=== PATIENT | female | born 1955 | race Caucasian/White ===

== ENCOUNTER 2023-10-21 13:28 | Emergency (ER) | payer OTHER, MEDICARE, MEDICAID, SELFPAY ==
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
[2023-10-21 14:05] VITALS: BP 136/74; BP 158/86; PULSE 65; RESP 18; TEMP 36.1; O2SAT 97; BMI 42.4
[2023-10-21] MEDS: Acetaminophen 325 MG TABLET 650 MG PO (14:18)
--- NOTE | 2023-10-21 14:20 | PC.NURSE ---
pt medicated per order
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
[2023-10-21 16:13] VITALS: BP 148/79; PULSE 64; RESP 18; TEMP 36.6; O2SAT 98
[2023-10-21] MEDS: Ondansetron ODT 4 MG TAB.RAPDIS TRANSLINGU (17:19)
[2023-10-21 17:29] VITALS: BP 148/79; PULSE 64; RESP 18; TEMP 36.6
== END 2023-10-21 17:40 | disposition home or self-care (01) ==
PROVIDERS: Emergency Provider Emergency Medicine
DX: S20.213A Contusion of bilateral front wall of thorax, initial encounter (principal); R11.0 Nausea; R07.81 Pleurodynia; R07.89 Other chest pain; M54.2 Cervicalgia; V43.62XA Car passenger injured in collision with other type car in traffic accident, initial encounter; Y93.9 Activity, unspecified; Y92.410 Unspecified street and highway as the place of occurrence of the external cause; Y99.8 Other external cause status
CPT/HCPCS: 71111; 94010; 99283; 99284

== ENCOUNTER 2024-06-09 10:00 | Outpatient (REF) | payer OTHER, MEDICARE, MEDICAID, SELFPAY ==
--- OUTSIDE RECORDS SUMMARY | 2024-06-09 13:10 | XMS_ITS | Clinical Summary ---
Author Organization [facility] Address [address] [place] [address] Care Team Providers Care Coil Machine Supervisor Name Role Phone Ayana Deleon APRN Primary Care Provider [phone] Allergies Active Allergy Reactions Criticality Noted Date Comments Amoxicillin 11/27/2013 Medications Medication Sig Dispensed Refills Start Date End Date Status valsartan (DIOVAN) 40 MG tablet 160 mg daily. 0 Active pantoprazole (PROTONIX) 40 MG tablet Take 1 tablet (40 mg total) by mouth daily. Pantoprazole Sodium 40 MG Oral Tablet Delayed Release Refills: 0 Active 30 tablet 0 12/01/2014 Active traMADol (ULTRAM) 50 MG tablet 0 09/27/2015 Active cyclobenzaprine (FLEXERIL) 10 MG tablet Take 1 tablet (10 mg total) by mouth 3 (three) times a day as needed for muscle spasms. 30 tablet 0 10/23/2015 Active lidocaine (LIDODERM) 5 % Place 1 patch onto the skin daily. Remove & Discard patch within 12 hours or as directed by MD 30 patch 0 10/23/2015 Active naproxen (NAPROSYN) 500 MG tablet Take 1 tablet (500 mg total) by mouth 2 (two) times a day with meals. 30 tablet 0 10/23/2015 Active HYDROcodone-acetam inophen (NORCO) 5-325 MG per tablet Take 1 tablet by mouth every 6 (six) hours as needed for pain. 6 tablet 0 10/23/2015 Active meclizine (ANTIVERT) 25 MG tablet Take 1 tablet (25 mg total) by mouth 3 (three) times a day as needed. 30 tablet 0 12/30/2015 Active sucralfate (CARAFATE) 1 GM/10ML suspension Take 10 mL (1 g total) by mouth 4 (four) times a day. 420 mL 0 01/23/2016 Active Active Problems Problem Noted Date Diagnosed Date Postoperative ileus 11/24/2014 Obesity, morbid, BMI 50 or higher 11/18/2014 Small bowel obstruction 11/17/2014 Hypertension associated with diabetes 11/17/2014 Hyperglycemia 11/17/2014 S/P exploratory laparotomy 11/17/2014 Ventral hernia with obstruction 11/17/2014 Hernia, incisional 11/16/2014 Cancer of body of uterus 11/16/2014 Resolved Problems Problem Noted Date Diagnosed Date Resolved Date Postoperative respiratory failure 11/18/2014 11/23/2014 Lactate blood increased 11/17/201410/28 Acute respiratory failure fo llowing trauma and surgery 11/17/2014 11/18/2014 Social History Tobacco Use Types Packs/Day Years Used Date Smoking Tobacco: Never Alcohol Use Standard Drinks/Week Comments No 0 (1 standard drink = 0.6 oz pur e alcohol) Sex and Gender Information Value Date Recorded Sex Assigned at Not on file Gender Identity Not on file Sexual Orientation Not on file Last Filed Vital Signs Vital Sign Reading Time Taken Comments Blood Pressure 139/77 09/19/2016 1:15 PM EDT Pulse 67 09/19/2016 1:15 PM EDT Temperature 36.7 ??C (98 ??F) 09/19/2016 1:15 PM EDT Respiratory Rate 16 09/19/2016 1:15 PM EDT Oxygen Saturation 96% 09/19/2016 1:15 PM EDT Inhaled Oxygen Concentration - - Weight 141.6 kg (312 lb 2.7 oz) 017 10:27 AM EDT Height 154.9 cm (5' 1 ) 09/19/2016 10:2 7 AM EDT Body Mass Index 58.98 09/19/2016 10:27 AM EDT Plan of Treatment Health Maintenance Due Date Last Done Comments Hepatitis C Screening 1954 Pneumococcal Vaccine (1 of 2 - PCV) 1960 Depression Screening 1966 Preventative Health Evaluation 1972 DTap / Tdap / Td (1 - Tdap) 1973 Shingrix-Zoster Vaccine (1 o f 2) 1973 Colon Cancer Screening (Colonoscopy) 1999 Breast Cancer Screening (Mammogram) 2004 Fall Risk Assessment 2019 Osteoporosis Screening (DEXA Scan) 2019 COVID-19 Vaccine (2 - Pfizer risk series) 10/17/2021 09/26/2021 Influenza Vaccine (#1) 2023 9, 02/22/2017 RSV Adult > 60+ Yrs or (1 - 1-dose 75+ series) 2029 Hepatitis B Vaccines Aged Out No long er eligible based on patient's age to complete this topic RSV Ped < 20 months Aged Out No longe r eligible based on patient's age to complete this topic Advance Directives For more information, please contact: [phone] Latest Code Status on File Code Status Date Activated Date Inactivated Comments Full Code 11/16/2014 10:41 PM 12/02/2014 5:55 PM This code status was ascertained in the following way: discussion with patient. Care Teams Coil Machine Supervisor Relationship Specialty Start Date End Date Ayana Deleon APRN PCP - General Family Medicine 11/27/13
--- OUTSIDE RECORDS SUMMARY | 2024-06-09 13:10 | XMS_ITS | Clinical Summary ---
Author Organization [facility] Address [address] [place] [address] Care Team Providers Care Filler Machine Operator Name Role Phone Ayana Deleon I CHARGER OPERATOR Primary Care Provider [phone] Immunizations Name Administration Dates Next Due Pfizer (ages 12 & older) PABLITO S-CoV-2 COVID-19, mRNA, LNP-S, rosa maria-sucrose, preservative free 09/26/2021 Social History Tobacco Use Types Packs/Day Years Used Date Smoking Tobacco: Never Smokeless Tobacco: Never Comments Unknown Sex and Gender Information Value Date Recorded Sex Assigned at Not on file Legal Sex Female 2:34 PM EST Gender Identity Not on file Sexual Orientation Not on file Obstetrics History Plan of Treatment Health Maintenance Due Date Last Done Comments Breast Cancer Screening 1954 DTaP,Tdap,and Td Vaccines (1 - Tdap) 1961 Diabetes: Annual Foot Exam 1964 Diabetes: Annual Retina Eye Exam 1964 Pneumococcal Vaccine: 50+ Ye ars (1 of 2 - PCV) 1973 Zoster Vaccines (1 of 2) 1973 Diabetes: Annual GFR (Glomer ular Filtration Rate) 09/19/2017 09/19/2016 COVID-19 Vaccine (2 - Pfizer risk series) 10/17/2021 09/26/2021 Cholesterol Screening (Lipid Panel) 03/28/2022 Colorectal Cancer Screening: Colonoscopy 03/28/2022 Depression Screening 03/28/2022 Falls Risk Assessment 03/28/2022 Hepatitis C Screening 03/28/2022 Osteoporosis Screening (Bone Density Screening) 03/28/2022 Social Influencers of Health Screening 03/28/2022 Diabetes: Annual Urine Albumin-Creatinine Ratio (uACR) 04/15/2022 Diabetes: Blood Sugar Contro l Test (HGBA1C) 04/15/2022 Hypertension/CHF/CAD Annual BMP Blood Test 04/15/2022 09/19/2016 Influenza Vaccine (#1) 2023 RSV Immunization Patients 60 + Years Old (1 - 1-dose 75+ series) 2029 HIB Vaccines Aged Out No longer eligi ble based on patient's age to complete this topic HPV Vaccines Aged Out No longer eligi ble based on patient's age to complete this topic Hepatitis A Vaccines Aged Out No long er eligible based on patient's age to complete this topic Hepatitis B Vaccines Aged Out No long er eligible based on patient's age to complete this topic IPV Vaccines Aged Out No longer eligi ble based on patient's age to complete this topic MMR Vaccines Aged Out No longer eligi ble based on patient's age to complete this topic Meningococcal ACWY Vaccine Aged Out N o longer eligible based on patient's age to complete this topic Meningococcal B Vacine Aged Out No lo nger eligible based on patient's age to complete this topic RSV Immunization Patients Un carmita 20 months Aged Out No longer eligible b ased on patient's age to complete this topic Varicella Vaccines Aged Out No longer eligible based on patient's age to complete this topic Care Teams Filler Machine Operator Relationship Specialty Start Date End Date Ayana Deleon NP PCP - General Family Medicine 11/27/13
[2024-06-09 18:38] LABS: Alanine Aminotransferase 11 U/L (0-31); Aspartate Amino Transferase 24 U/L (5-31); Estimated Glomerular Filt Rate > 60
== END 2024-06-09 10:01 | disposition home or self-care (01) ==
LOC: HO.HKASLDS 10:00
PROVIDERS: PCP Physician Assistant Medical; Visit Provider Internal Medicine Rheumatology
DX: M17.0 Bilateral primary osteoarthritis of knee (principal)
CPT/HCPCS: 36415; 82565; 84450; 84460; 99212

== ENCOUNTER 2024-06-09 10:00 | Outpatient (AMB) | payer MEDICARE, MEDICAID, SELFPAY ==
[2024-06-09 10:33] VITALS: BP 140/82; PULSE 57; O2SAT 97; BMI 42.7
--- NOTE | 2024-06-09 10:33 | MHC.OFFVIS ---
Vital Signs 06/09/24 10:33 Height 5 ft 1 in Weight 226 lb BMI 42.7 BP 140/82 H Blood Pressure Location Lt brachial Position Sitting Pulse 57 Pulse Source Pulse Oximeter Pulse Oximetry (%) 97 Oxygen Delivery Method Room Air Intake Visit Reasons: osteoarthritis Intake Note: Patietnt presents follow up no concernns Allergies amoxicillin Allergy (Intermediate, Verified 06/09/24 10:41) Rash naproxen Adverse Reaction (Unknown, Verified 06/09/24 10:41) Unknown HPI HPI osteoarthritis: Details: She had a fall 2 months ago resulting in hitting her right knee on the floor. She continues to have pain on her right knee at rest and with ambulation. She has pain in left knee with ambulation. She uses in cane to ambulate. Tylenol is ineffective. She has been using diclofenac gel PRN pain. She has been applying ice to her knee. She purchased ibuprofen OTC and has used 600 mg 2 to 3 times a week but it causes her to feel sleepy. In the past she did not have relief with cortisone injections. She had Euflexxa left knee 1st injection 11/01/2023 in [facility]. She does not recall seeing a colleague of mine afterwards to complete the series. [facility] Medical History Uterine cancer Hypertension Constipation Abdominal wall hernia Tendonitis Osteoarthritis Trochanteric bursitis Backache Arthralgia Surgical History History of appendectomy Hx of cholecystectomy Family History Father FH: prostate cancer Osteoarthritis Mother Esophageal cancer Osteoarthritis Social History Alcohol intake: never Patient Tobacco Use Status: Never used Tobacco Review of Systems Const All systems reviewed & are unremarkable except as noted in HPI and below Physical Exam Vital Signs: Last Vital Signs Pulse 57 06/09/24 10:33 BP 140/82 H 06/09/24 10:33 Pulse Ox 97 06/09/24 10:33 Oxygen Delivery Method Room Air 06/09/24 10:33 BMI result Body Mass Index 42.7 Const Other: General: Comfortable Skin: No lesions seen MSK: Tender to palpate along joint lines of both knees. Mild joint effusion and warmth of right knee. Knee flexion 90 degrees bilateral. Antalgic gait. Assessment & Plan Assessment & Plan (1) Osteoarthritis of knees, bilateral: Comment: Uncontrolled pain right knee after a fall. Her right knee gave out on her. She agreed to physical therapy for lower extremity strengthening. We discussed short-term management of pain and long-term management. She agreed to try alternative NSAID naproxen as ibuprofen is causing in somnolence. She has failed physical therapy, cortisone injections, Tylenol and diclofenac gel. Euflexxa is indicated. Code(s): M17.0 - Bilateral primary osteoarthritis of knee Category: Medical Plan: Baseline labs ordered. I will send prescription for naproxen 375 mg b.i.d. with food PA for Euflexxa bilateral knees. Once approved, she will need 3 weekly consecutive appointments for Euflexxa Return to clinic in 1 month for Euflexxa bilateral knees Right knee hinged brace prescription given to patient PT ordered for lower extremity strengthening Orders: Orders PT Evaluation and Treatment Today M17.0 - Bilateral primary osteoarthritis of knee Alanine Aminotransferase Today M17.0 - Bilateral primary osteoarthritis of knee Creatinine Today M17.0 - Bilateral primary osteoarthritis of knee Aspartate Amino Transferase Today M17.0 - Bilateral primary osteoarthritis of knee Medications: New leg brace (Knee Support Brace) As directed Right Hinged knee brace Dx: knee osteoarthritis 1 ea 0RF naproxen 375 mg PO BID PRN 60 tabs 2RF pain Coding Level of Care Code Est Pt Level 3 (08149) Complex EM visit Add On G2211 Diagnoses Osteoarthritis of knees, bilateral M17.0
== END 2024-06-09 11:23 | disposition home or self-care (01) ==
PROVIDERS: Visit Provider Internal Medicine Rheumatology
DX: M17.0 Bilateral primary osteoarthritis of knee (principal)
CPT/HCPCS: 99213; G2211

== ENCOUNTER 2024-07-22 12:43 | Outpatient (AMB) | payer MEDICARE, MEDICAID, SELFPAY ==
--- NOTE | 2024-07-22 12:45 | MHC.OFFVIS ---
Vital Signs 07/22/24 12:48 Height 5 ft 1 in Weight 224 lb 10.417 oz BMI 42.4 BP 108/74 Blood Pressure Location Lt brachial Position Sitting Pulse 70 Pulse Source Pulse Oximeter Pulse Oximetry (%) 98 Oxygen Delivery Method Room Air Intake Visit Reasons: 1 Month/euflexxa injection Intake Note: Patient presents today for euflexxa injections. Allergies amoxicillin Allergy (Intermediate, Verified 07/22/24 12:49) Rash naproxen Adverse Reaction (Unknown, Verified 07/22/24 12:49) Unknown HPI HPI 1 Month/euflexxa injection: Details: Benefit with naproxen but it causes her to feel sleepy during the day. PFSH Medical History Uterine cancer Hypertension Constipation Abdominal wall hernia Tendonitis Osteoarthritis Trochanteric bursitis Backache Arthralgia Surgical History History of appendectomy Hx of cholecystectomy Family History Father FH: prostate cancer Osteoarthritis Mother Esophageal cancer Osteoarthritis Social History Alcohol intake: never Patient Tobacco Use Status: Never used Tobacco Review of Systems Const All systems reviewed & are unremarkable except as noted in HPI and below Physical Exam Vital Signs: Last Vital Signs Pulse 70 07/22/24 12:48 BP 108/74 07/22/24 12:48 Pulse Ox 98 07/22/24 12:48 Oxygen Delivery Method Room Air 07/22/24 12:48 BMI result Body Mass Index 42.4 Const Other: General: Comfortable Skin: No lesions seen MSK: Tender to palpate along joint lines of both knees. Mild joint effusion and warmth of right knee. Knee flexion 90 degrees bilateral. Antalgic gait. Uses cane to ambulate. Office Procedures AMB Joint Injection/Aspiration Joint Injection/Aspiration Details: Bilateral knees Prep: site was prepped using aseptic technique Injected: Euflexxa 20 mg was injected into each knee using 25 gauge 1-1/2 inch needle Procedure: The patient tolerated the procedure well. Postprocedure protocol was discussed with patient. Coding 73353 - Bilateral Large Joint Procedure code (CPT) selection complete AMB Joint Injection/Aspiration Coding 87969 - Bilateral Large Joint Procedure code (CPT) selection complete Office Meds Euflexxa 10 mg/mL (mw 2.4-3.6 million) intra-articular syringe Performing Provider: Alex Santos MD Performing Location: [facility] [facility] Administered by: Alex Santos MD on 07/22/24 13:07 Dose Route Admin Location Dispensed Lot Number Expiration Date [facility] [place][NOTE 3] Crt 20 mg intra-articular 2 mL [id number] Euflexxa 10 mg/mL (mw 2.4-3.6 million) intra-articular syringe Performing Provider: Alex Santos MD Performing Location: [facility] [facility] Administered by: Alex Santos MD on 07/22/24 13:07 Dose Route Admin Location Dispensed Lot Number Expiration Date [facility] [place][NOTE 3] Crt 20 mg intra-articular 2 mL [id number] Assessment & Plan Assessment & Plan (1) Osteoarthritis of knees, bilateral: Comment: Uncontrolled bilateral knee pain. Naproxen is causing increased somnolence. Bilateral knee Euflexxa #1 today Rheumatology history: She has failed physical therapy, cortisone injections, Tylenol and diclofenac gel. Ibuprofen and naproxen caused increased somnolence. Euflexxa 06/2024- Code(s): M17.0 - Bilateral primary osteoarthritis of knee Category: Medical Plan: Patient received bilateral Euflexxa knee injections this visit Return to clinic in 1 week Orders: Orders AMB Joint Injection/Aspiration Today M17.0 - Bilateral primary osteoarthritis of knee AMB Joint Injection/Aspiration Today M17.0 - Bilateral primary osteoarthritis of knee Medications: New Euflexxa (sodium hyaluronate (viscosup)) 20 mg (2 mL) intra-articular ONCE 2 mL 0RF NS M17.0 - Bilateral primary osteoarthritis of knee Euflexxa (sodium hyaluronate (viscosup)) 20 mg (2 mL) intra-articular ONCE 2 mL 0RF NS M17.0 - Bilateral primary osteoarthritis of knee Coding Level of Care Code Est Pt Level 3 (99359) Complex EM visit Add On G2211 Diagnoses Osteoarthritis of knees, bilateral M17.0 CPT Codes Coding - - Bilateral Large Joint: - Bilateral Large Joint ([id number]) Coding - - Bilateral Large Joint: - Bilateral Large Joint ([id number])
[2024-07-22 12:48] VITALS: BP 108/74; PULSE 70; O2SAT 98; BMI 42.4
== END 2024-07-22 13:07 | disposition home or self-care (01) ==
LOC: HO.RHES 12:44
PROVIDERS: PCP Physician Assistant Medical; Visit Provider Internal Medicine Rheumatology
DX: M17.0 Bilateral primary osteoarthritis of knee (principal)
CPT/HCPCS: 20610; 99213

== ENCOUNTER → 2024-07-22 12:43 | Outpatient (BNVA) | payer MEDICARE, MEDICAID, SELFPAY | PROVIDERS: PCP Physician Assistant Medical; Visit Provider Internal Medicine Rheumatology | DX: M17.0 Bilateral primary osteoarthritis of knee (principal) | CPT/HCPCS: 20610; 99212; J7323 ==

== ENCOUNTER 2024-07-29 10:09 | Outpatient (AMB) | payer MEDICARE, MEDICAID, SELFPAY ==
[2024-07-29 10:16] VITALS: BP 120/72; PULSE 61; O2SAT 91; BMI 43.4
--- NOTE | 2024-07-29 10:16 | MHC.OFFVIS ---
Vital Signs 07/29/24 10:16 Height 5 ft 1 in Weight 229 lb 11.547 oz BMI 43.4 BP 120/72 Blood Pressure Location Rt brachial Position Sitting Pulse 61 Pulse Source Pulse Oximeter Pulse Oximetry (%) 91 L Oxygen Delivery Method Room Air Intake Visit Reasons: Euflexxa injection Intake Note: Patient presents today for euflexxa injections. Pt states that her right knee is extremely soras well as her left upper arm. Allergies amoxicillin Allergy (Intermediate, Verified 07/29/24 10:19) Rash naproxen Adverse Reaction (Unknown, Verified 07/29/24 10:19) Unknown HPI HPI Euflexxa injection: Details: She has a right medial pain since last injection. ON LICENSE OF [facility] Medical History Uterine cancer Hypertension Constipation Abdominal wall hernia Tendonitis Osteoarthritis Trochanteric bursitis Backache Arthralgia Surgical History History of appendectomy Hx of cholecystectomy Family History Father FH: prostate cancer Osteoarthritis Mother Esophageal cancer Osteoarthritis Social History Alcohol intake: never Patient Tobacco Use Status: Never used Tobacco Review of Systems Const All systems reviewed & are unremarkable except as noted in HPI and below Physical Exam Vital Signs: Last Vital Signs Pulse 61 07/29/24 10:16 BP 120/72 07/29/24 10:16 Pulse Ox 91 L 07/29/24 10:16 Oxygen Delivery Method Room Air 07/29/24 10:16 BMI result Body Mass Index 43.4 Const Other: General: Comfortable Skin: No lesions seen MSK: Tender to palpate along joint lines of both knees. No joint effusion. Knee flexion 90 degrees bilateral. Antalgic gait. Uses cane to ambulate. Office Procedures AMB Joint Injection/Aspiration Joint Injection/Aspiration Details: Bilateral knees Prep: site was prepped using aseptic technique Injected: Euflexxa 20 mg was injected into each knee using 25 gauge 1-1/2 inch needle Procedure: The patient tolerated the procedure well. Postprocedure protocol was discussed with patient. Coding 71048 - Bilateral Large Joint Procedure code (CPT) selection complete AMB Joint Injection/Aspiration Coding 22816 - Bilateral Large Joint Procedure code (CPT) selection complete Office Meds Euflexxa 10 mg/mL (mw 2.4-3.6 million) intra-articular syringe Performing Provider: Alex Santos MD Performing Location: [facility] [place] [facility] Administered by: Alex Santos MD on 07/29/24 11:58 Dose Route Admin Location Dispensed Lot Number Expiration Date [facility] Rubber Goods Cutter Finisher 20 mg intra-articular 2 mL [id number] Euflexxa 10 mg/mL (mw 2.4-3.6 million) intra-articular syringe Performing Provider: Alex Santos MD Performing Location: [facility] [place] [facility] Administered by: Alex Santos MD on 07/29/24 11:58 Dose Route Admin Location Dispensed Lot Number Expiration Date [facility] Rub[employer]s Cutter Finisher 20 mg intra-articular 2 mL [id number] Assessment & Plan Assessment & Plan (1) Osteoarthritis of knees, bilateral: Comment: Uncontrolled bilateral knee pain. Bilateral knee Euflexxa #2 today Rheumatology history: She has failed physical therapy, cortisone injections, Tylenol and diclofenac gel. Ibuprofen and naproxen caused increased somnolence. Euflexxa 06/2024- Code(s): M17.0 - Bilateral primary osteoarthritis of knee Category: Medical Plan: Patient received bilateral knee Euflexxa injections this visit Return to clinic in 1 week Orders: Orders AMB Joint Injection/Aspiration Today M17.0 - Bilateral primary osteoarthritis of knee AMB Joint Injection/Aspiration Today M17.0 - Bilateral primary osteoarthritis of knee Coding Level of Care Code Est Pt Level 3 (05855) Complex EM visit Add On G2211 Diagnoses Osteoarthritis of knees, bilateral M17.0 CPT Codes Coding - 40819 - Bilateral Large Joint: 42792 - Bilateral Large Joint ([id number]) Coding - 89792 - Bilateral Large Joint: 27849 - Bilateral Large Joint ([id number])
--- OUTSIDE RECORDS SUMMARY | 2024-07-29 11:46 | XMS_ITS | Clinical Summary ---
Author Organization [facility] Address [address] [place] [address] Care Team Providers Care Canal Driver Name Role Phone Ayana Deleon APRN Primary Care Provider [phone] Allergies Active Allergy Reactions Criticality Noted Date [...] Advance Directives For more information, please contact: [phone] Latest Code Status on File Code Status Date Activated Date Inactivated Comments Full Code 11/16/2014 10:41 PM 12/02/2014 5:55 PM This code status was ascertained in the following way: discussion with patient. Care Teams Canal Driver Relationship Specialty Start Date End Date Ayana Deleon APRN PCP - General Family Medicine 11/27/13
--- OUTSIDE RECORDS SUMMARY | 2024-07-29 11:46 | XMS_ITS | Clinical Summary ---
Author Organization [facility] ity Address [address] [place] [address] Care Team Providers Care Manager Call Center Name Role Phone Ayana Deleon I TRANSONIC ENGINEER Primary Care Provider [phone] Immunizations Name Administration Dates Next Due Pfizer [...] Last Done Comments Breast Cancer Screening 1954 Diabetes: Annual Foot Exam 1964 Diabetes: Annual Retina Eye Exam 1964 DTaP,Tdap,and Td Vaccines (1 - Tdap) 1973 Pneumococcal Vaccine: 50+ Ye ars (1 of [...] 09/19/2016 Influenza Vaccine (#1) 2023 RSV Immunization Adult Patie nts (1 - 1-dose 75+ series) 2029 HIB [...] age to complete this topic Care Teams Manager Call Center Relationship Specialty Start Date End Date Ayana Deleon NP PCP - General Family Medicine 11/27/13
== END 2024-07-29 10:44 | disposition home or self-care (01) ==
LOC: HO.RHES 10:10
PROVIDERS: PCP Physician Assistant Medical; Visit Provider Internal Medicine Rheumatology
DX: M17.0 Bilateral primary osteoarthritis of knee (principal)
CPT/HCPCS: 20610; 99213

== ENCOUNTER → 2024-07-29 10:09 | Outpatient (BNVA) | payer MEDICARE, MEDICAID, SELFPAY | PROVIDERS: PCP Physician Assistant Medical; Visit Provider Internal Medicine Rheumatology | DX: M17.0 Bilateral primary osteoarthritis of knee (principal) | CPT/HCPCS: 20610; 99212; J7323 ==

== ENCOUNTER 2024-08-05 09:37 | Outpatient (AMB) | payer MEDICARE, MEDICAID, SELFPAY ==
[2024-08-05 09:45] VITALS: BP 120/80; PULSE 76; O2SAT 96; BMI 43.3
--- NOTE | 2024-08-05 09:45 | MHC.OFFVIS ---
Vital Signs 08/05/24 09:45 Height 5 ft 1 in Weight 229 lb BMI 43.3 BP 120/80 Blood Pressure Location Lt brachial Position Sitting Pulse 76 Pulse Source Pulse Oximeter Pulse Oximetry (%) 96 Oxygen Delivery Method Room Air Intake Visit Reasons: euflexxa injection Intake Note: Patient presents today for euflexxa inject. 3 Allergies amoxicillin Allergy (Intermediate, Verified 08/05/24 09:47) Rash naproxen Adverse Reaction (Unknown, Verified 08/05/24 10:15) Unknown HPI HPI euflexxa injection: Details: Pain improved after last injections. FORMERLY [facility] Medical History Uterine cancer Hypertension Constipation Abdominal wall hernia Tendonitis Osteoarthritis Trochanteric bursitis Backache Arthralgia Surgical History History of appendectomy Hx of cholecystectomy Family History Father FH: prostate cancer Osteoarthritis Mother Esophageal cancer Osteoarthritis Social History Alcohol intake: never Patient Tobacco Use Status: Never used Tobacco Review of Systems Const All systems reviewed & are unremarkable except as noted in HPI and below Physical Exam Vital Signs: Last Vital Signs Pulse 76 08/05/24 09:45 BP 120/80 08/05/24 09:45 Pulse Ox 96 08/05/24 09:45 Oxygen Delivery Method Room Air 08/05/24 09:45 BMI result Body Mass Index 43.3 Const Other: General: Comfortable Skin: No lesions seen MSK: Tender to palpate along joint lines of both knees. No joint effusion. Knee flexion 90 degrees bilateral. Antalgic gait. Uses cane to ambulate. Office Procedures AMB Joint Injection/Aspiration Joint Injection/Aspiration Details: Bilateral knees Prep: site was prepped using aseptic technique Injected: Euflexxa 20 mg was injected into each knee using 25 gauge 1-1/2 inch needle Procedure: The patient tolerated the procedure well. Postprocedure protocol was discussed with patient. Coding 78651 - Bilateral Large Joint Procedure code (CPT) selection complete AMB Joint Injection/Aspiration Coding 16989 - Bilateral Large Joint Procedure code (CPT) selection complete Office Meds Euflexxa 10 mg/mL (mw 2.4-3.6 million) intra-articular syringe Performing Provider: Alex Santos MD Performing [place] [facility] [place] [facility] Administered by: Alex Santos MD on 08/05/24 22:25 Dose Route Admin Location Dispensed Lot Number Expiration Date [facility] Stem Frazer 20 mg intra-articular 2 mL [id number] Euflexxa 10 mg/mL (mw 2.4-3.6 million) intra-articular syringe Performing Provider: Alex Santos MD Performing Location: [facility] [place] [facility] Administered by: Alex Santos MD on 08/05/24 22:25 Dose Route Admin Location Dispensed Lot Number Expiration Date [facility] Stem Frazer 20 mg intra-articular 2 mL [id number] Assessment & Plan Assessment & Plan (1) Osteoarthritis of knees, bilateral: Comment: Bilateral knee pain improved with last euflexxa injections. Bilateral knee Euflexxa #3 today Rheumatology history: She has failed physical therapy, cortisone injections, Tylenol and diclofenac gel. Ibuprofen and naproxen caused increased somnolence. Euflexxa 06/2024-08/05/2024. Code(s): M17.0 - Bilateral primary osteoarthritis of knee Category: Medical Plan: Patient received bilateral Euflexxa knee injections Return to clinic in 6 months for bilateral knee euflexxa injections. No PA is needed 06/12/2024 workload message Orders: Orders AMB Joint Injection/Aspiration Today M17.0 - Bilateral primary osteoarthritis of knee AMB Joint Injection/Aspiration Today M17.0 - Bilateral primary osteoarthritis of knee Medications: Discontinued naproxen Discontinued Reason: Doctor's Order 375 mg PO BID PRN 60 tabs 2RF pain Coding Level of Care Code Est Pt Level 3 (45612) Complex EM visit Add On G2211 Diagnoses Osteoarthritis of knees, bilateral M17.0 CPT Codes Coding - 80837 - Bilateral Large Joint: 58148 - Bilateral Large Joint ([id number]) Coding - 39363 - Bilateral Large Joint: 19889 - Bilateral Large Joint ([id number])
--- OUTSIDE RECORDS SUMMARY | 2024-08-05 10:26 | XMS_ITS | Clinical Summary ---
Author Organization [facility] Address [address] [place] [address] Care Team Providers Care Exhibit Designer Name Role Phone Ayana Deleon APRN Primary Care Provider [phone] Allergies Active Allergy Reactions Criticality Noted Date [...] Advance Directives For more information, please contact: [phone] Latest Code Status on File Code Status Date Activated Date Inactivated Comments Full Code 11/16/2014 10:41 PM 12/02/2014 5:55 PM This code status was ascertained in the following way: discussion with patient. Care Teams Exhibit Designer Relationship Specialty Start Date End Date Ayana Deleon APRN PCP - General Family Medicine 11/27/13
--- OUTSIDE RECORDS SUMMARY | 2024-08-05 10:26 | XMS_ITS | Clinical Summary ---
Author Organization [facility] ity Address [address] [place] [address] Care Team Providers Care Endocrinology Physician Name Role Phone Ayana Deleon I ENGINEERING LAB TECHNICIAN Primary Care Provider [phone] Immunizations Name Administration Dates Next Due Pfizer [...] age to complete this topic Meningococcal B Vaccine Aged Out No l onger eligible based on patient's age to complete this topic RSV Immunization Patients Un carmita 20 months Aged Out No longer eligible b ased on patient's age to complete this topic Varicella Vaccines Aged Out No longer eligible based on patient's age to complete this topic Care Teams Endocrinology Physician Relationship Specialty Start Date End Date Ayana Deleon NP PCP - General Family Medicine 11/27/13
== END 2024-08-05 10:23 | disposition home or self-care (01) ==
LOC: HO.RHES 09:38
PROVIDERS: PCP Physician Assistant Medical; Visit Provider Internal Medicine Rheumatology
DX: M17.0 Bilateral primary osteoarthritis of knee (principal)
CPT/HCPCS: 20610; 99213

== ENCOUNTER → 2024-08-05 09:37 | Outpatient (BNVA) | payer MEDICARE, MEDICAID, SELFPAY | PROVIDERS: PCP Physician Assistant Medical; Visit Provider Internal Medicine Rheumatology | DX: M17.0 Bilateral primary osteoarthritis of knee (principal) | CPT/HCPCS: 20610; 99212; J7323 ==

== ENCOUNTER 2025-02-25 14:06 | Outpatient (AMB) | payer MEDICARE, MEDICAID, SELFPAY ==
--- NOTE | 2025-02-25 14:40 | A.OFFVIS_ITS ---
Vital Signs 02/25/25 14:41 Height 5 ft 1 in BP 122/80 Blood Pressure Location Rt brachial Position Sitting Pulse 69 Pulse Source Pulse Oximeter Pulse Oximetry (%) 98 Oxygen Delivery Method Room Air Intake Visit Reasons: Euflexxa Intake Note: Patient presents today for 4th euflexxa injection. Accompanied by: Self / Same As Patient Allergies amoxicillin Allergy (Intermediate, Verified 02/25/25 14:43) Rash naproxen Adverse Reaction (Unknown, Verified 02/25/25 14:43) Unknown HPI HPI Euflexxa: Details: SHe had no pain for at least two months in her knees. The pain gradually came back. She uses aleeve PRN pain but not consistently. She is not bracing. Uses cane to ambulate. [facility] Medical History Uterine cancer Hypertension Constipation Abdominal wall hernia Tendonitis Osteoarthritis Trochanteric bursitis Backache Arthralgia Surgical History History of appendectomy Hx of cholecystectomy Family History Father FH: prostate cancer Osteoarthritis Mother Esophageal cancer Osteoarthritis Social History Alcohol intake: never Patient Tobacco Use Status: Never used Tobacco Physical Exam Vital Signs: Last Vital Signs Pulse 69 02/25/25 14:41 BP 122/80 02/25/25 14:41 Pulse Ox 98 02/25/25 14:41 Oxygen Delivery Method Room Air 02/25/25 14:41 Const Other: General: Comfortable Skin: No lesions seen MSK: Tender to palpate along joint lines of both knees. No joint effusion. Knee flexion 90 degrees bilateral. Antalgic gait. Uses cane to ambulate. Office Procedures AMB Joint Injection/Aspiration Joint Injection/Aspiration Details: Bilateral knees Prep: site was prepped using aseptic technique Injected: Euflexxa 20 mg was injected into each knee using 25 gauge 1-1/2 inch needle Procedure: Informed verbal consent was obtained. The patient tolerated the procedure well. Postprocedure protocol was discussed with patient. Coding 51392 - Bilateral Large Joint Procedure code (CPT) selection complete AMB Joint Injection/Aspiration Coding 05169 - Bilateral Large Joint Procedure code (CPT) selection complete Office Meds Euflexxa 10 mg/mL (mw 2.4-3.6 million) intra-articular syringe Performing Provider: Alex Santos MD [place] [facility] [place] [facility] Administered by: Tristian Wright RN on 02/25/25 16:06 Dose Route Admin Location Dispensed Lot Number Expiration Date [facility] Record Label Internship 20 mg intra-articular 2 mL [id number] 03/15/26 [address]-7 FE RRING PHARMAC Total Dispensed Waste 2 mL 0 % Euflexxa 10 mg/mL (mw 2.4-3.6 million) intra-articular syringe Performing Provider: Alex Santos MD Performing [place] [facility] [place] [facility] Administered by: Tristian Wright RN on 02/25/25 16:06 Dose Route Admin Location Dispensed Lot Number Expiration Date [facility] Record Label Internship 20 mg intra-articular 2 mL [id number] 03/15/26 [address]-9 F ERRING [employer]ARMAC Total Dispensed Waste 2 mL 0 % Assessment & Plan Assessment & Plan (1) Osteoarthritis of knees, bilateral: Comment: Bilateral knee pain relieved with last set of euflexxa injections. Bilateral knee Euflexxa #1 today Rheumatology history: She has failed physical therapy, cortisone injections, Tylenol and diclofenac gel. Ibuprofen and naproxen caused increased somnolence. Euflexxa 06/2024-08/05/2024. Code(s): M17.0 - Bilateral primary osteoarthritis of knee Category: Medical Plan: Patient received bilateral Euflexxa knee injections RTC 1 week Orders: Orders AMB Joint Injection/Aspiration 02/25/25 M17.0 - Bilateral primary osteoarthritis of knee AMB Joint Injection/Aspiration 02/25/25 M17.0 - Bilateral primary osteoarthritis of knee Coding Level of Care Code Est Pt Level 3 (64792) Complex EM visit Add On G2211 Diagnoses Osteoarthritis of knees, bilateral M17.0 CPT Codes Coding - 04887 - Bilateral Large Joint: 45535 - Bilateral Large Joint ([id number]) Coding - 79798 - Bilateral Large Joint: 63779 - Bilateral Large Joint ([id number])
[2025-02-25 14:41] VITALS: BP 122/80; PULSE 69; O2SAT 98
--- OUTSIDE RECORDS SUMMARY | 2025-02-25 17:09 | XMS_ITS | Clinical Summary ---
Author Organization [facility] Address [address] [place] [address] Care Team Providers Care Chief Financial Officer Name Role Phone Ayana Deleon APRN Primary Care Provider [phone] Allergies Active Allergy Reactions Criticality Noted Date [...] 67 09/19/2016 1:15 PM EDT Temperature 36.7 C (98 F) 09/19/2016 1:15 PM EDT Respiratory Rate 16 [...] risk series) 10/17/2021 09/26/2021 Influenza Vaccine (#1) 2024 9, 02/22/2017 RSV Adult > 60+ Yrs or (1 - 1-dose 75+ series) 2029 Hepatitis B Vaccines Aged Out No long er eligible based on patient's age to complete this topic RSV Ped < 20 months Aged Out No longe r eligible based on patient's age to complete this topic Advance Directives For more information, please contact: [phone] Latest Code Status on File Code Status Date Activated Date Inactivated Comments Full Code 11/16/2014 10:41 PM 12/02/2014 5:55 PM This code status was ascertained in the following way: discussion with patient. Care Teams Chief Financial Officer Relationship Specialty Start Date End Date Ayana Deleon APRN PCP - General Family Medicine 11/27/13
--- OUTSIDE RECORDS SUMMARY | 2025-02-25 17:09 | XMS_ITS | Clinical Summary ---
Author Organization [facility] ity Address [address] [place] [address] Care Team Providers Care Welding Equipment Repairer Name Role Phone Ayana Deleon I DIRECT MAIL MARKETER Primary Care Provider [phone] Immunizations Immunization Administration Dates Next Due Pfizer (ages 12 [...] Last Done Comments Breast Cancer Screening 1954 Colorectal Cancer Screening: Colonoscopy 1955 Diabetes: Annual Foot Exam 1964 Diabetes: Annual Retina Eye Exam 1964 DTaP,Tdap,and Td Vaccines (1 - Tdap) 1973 Pneumococcal Vaccine: 50+ Ye ars (1 of 1 - PCV) 2004 Zoster Vaccines (1 of 2) 2004 Diabetes: Annual GFR (Glomer ular Filtration Rate) 09/19/2017 09/19/2016 Cholesterol Screening (Lipid Panel) 03/28/2022 Falls Risk Assessment 03/28/2022 Hepatitis C Screening 03/28/2022 Osteoporosis Screening (Bone Density Screening) 03/28/2022 Social Influencers of Health Screening 03/28/2022 Diabetes: Annual Urine Albumin-Creatinine Ratio (uACR) 04/15/2022 Diabetes: Blood Sugar Contro l Test (HGBA1C) 04/15/2022 Hypertension/CHF/CAD Annual BMP Blood Test 04/15/2022 09/19/2016 Depression Screening 04/29/2024 COVID-19 Vaccine (2 - 2024-2 6 season) 2024 09/26/2021 Influenza Vaccine (#1) 2024 RSV Immunization Adult Patie nts (1 - [...] age to complete this topic Care Teams Welding Equipment Repairer Relationship Specialty Start Date End Date Ayana Deleon NP PCP - General Family Medicine 11/27/13
== END 2025-02-25 15:08 | disposition home or self-care (01) ==
PROVIDERS: PCP Physician Assistant Medical; Visit Provider Internal Medicine Rheumatology
DX: M17.0 Bilateral primary osteoarthritis of knee (principal)
CPT/HCPCS: 20610

== ENCOUNTER → 2025-02-25 14:06 | Outpatient (BNVA) | payer MEDICARE, MEDICAID, SELFPAY | PROVIDERS: PCP Physician Assistant Medical; Visit Provider Internal Medicine Rheumatology | DX: M17.0 Bilateral primary osteoarthritis of knee (principal) | CPT/HCPCS: 20610; J7323 ==

== ENCOUNTER 2025-03-02 09:14 | Outpatient (AMB) | payer MEDICARE, MEDICAID, SELFPAY ==
--- NOTE | 2025-03-02 09:05 | A.OFFVIS_ITS ---
Vital Signs 03/02/25 09:06 Height 5 ft 1 in BP 130/80 Blood Pressure Location Rt brachial Position Sitting Pulse 64 Pulse Source Pulse Oximeter Pulse Oximetry (%) 99 Oxygen Delivery Method Room Air Intake Visit Reasons: eufluxxa Intake Note: Patient presents today for euflexxa inject. 4 Accompanied by: Self / Same As Patient Allergies amoxicillin Allergy (Intermediate, Verified 03/02/25 09:06) Rash naproxen Adverse Reaction (Unknown, Verified 03/02/25 09:06) Unknown HPI HPI eufluxxa: Details: SHe tolerated last injection. Pain in knees have reduced. [facility] Medical History Uterine cancer Hypertension Constipation Abdominal wall hernia Tendonitis Osteoarthritis Trochanteric bursitis Backache Arthralgia Surgical History History of appendectomy Hx of cholecystectomy Family History Father FH: prostate cancer Osteoarthritis Mother Esophageal cancer Osteoarthritis Social History Alcohol intake: never Patient Tobacco Use Status: Never used Tobacco Physical Exam Vital Signs: Last Vital Signs Pulse 64 03/02/25 09:06 BP 130/80 03/02/25 09:06 Pulse Ox 99 03/02/25 09:06 Oxygen Delivery Method Room Air 03/02/25 09:06 Const Other: General: Comfortable Skin: No lesions seen MSK: Non tender knees. No joint effusion. Knee flexion 90 degrees bilateral. Uses cane to ambulate. Office Procedures AMB Joint Injection/Aspiration Coding 09692 - Bilateral Large Joint Procedure code (CPT) selection complete AMB Joint Injection/Aspiration Joint Injection/Aspiration Details: Bilateral knees Prep: site was prepped using aseptic technique Injected: Euflexxa 20 mg was injected into each knee using 25 gauge 1-1/2 inch needle Procedure: Informed verbal consent was obtained. The patient tolerated the procedure well. Postprocedure protocol was discussed with patient. Coding 98235 - Bilateral Large Joint Procedure code (CPT) selection complete AMB Joint Injection/Aspiration Coding 66581 - Bilateral Large Joint Procedure code (CPT) selection complete AMB Joint Injection/Aspiration Coding 50039 - Bilateral Large Joint Procedure code (CPT) selection complete Office Meds Euflexxa 10 mg/mL (mw 2.4-3.6 million) intra-articular syringe Performing Provider: Alex Santos MD Performing Location: [facility] [place] [facility] Administered by: Tristian Wright RN on 03/02/25 10:31 Dose Route Admin Location Dispensed Lot Number Expiration Date [place] [employer] Growing Technician 20 mg intra-articular 2 mL [id number] 03/15/26 [address]-7 FE [employer]ING [employer] Total Dispensed Waste 2 mL 0 % lidocaine (PF) 10 mg/mL (1 %) injection solution Performing Provider: Alex Santos MD Performing Location: [facility] [place] [facility] Documented (not given) by: Alex Santos MD on 03/02/25 10:08 Dose Route Admin Location Dispensed Lot Number Expiration Date [facility] Crystal Growing Technician 1 mL Infiltration mL Total Dispensed Waste n/a n/a Euflexxa 10 mg/mL (mw 2.4-3.6 million) intra-articular syringe Performing Provider: Alex Santos MD Performing Location: [facility] [place] [facility] Documented (not given) by: Alex Santos MD on 03/02/25 10:08 Dose Route Admin Location Dispensed Lot Number Expiration Date [facility] Crystal Growing Technician 20 mg intra-articular mL Total Dispensed Waste n/a n/a lidocaine (PF) 10 mg/mL (1 %) injection solution Performing Provider: Alex Santos MD Performing Location: [facility] [place] [facility] Documented (not given) by: Alex Santos MD on 03/02/25 10:08 Dose Route Admin Location Dispensed Lot Number Expiration Date [place] Crystal Growing Technician 1 mL Infiltration mL Total Dispensed Waste n/a n/a Euflexxa 10 mg/mL (mw 2.4-3.6 million) intra-articular syringe Performing Provider: Alex Santos MD Performing Location: [facility] [place] [facility] Documented (not given) by: Alex Santos MD on 03/02/25 10:08 Dose Route Admin Location Dispensed Lot Number Expiration Date [place] [employer] Growing Technician 20 mg intra-articular mL Total Dispensed Waste n/a n/a Euflexxa 10 mg/mL (mw 2.4-3.6 million) intra-articular syringe Performing Provider: Alex Santos MD Performing Location: [facility] [place] [facility] Administered by: Tristian Wright RN on 03/02/25 10:31 Dose Route Admin Location Dispensed Lot Number Expiration Date [facility] Crystal Growing Technician 20 mg intra-articular 2 mL [id number] 03/29/26 [address]-1 FE [employer]ING [employer]ARMAC Total Dispensed Waste 2 mL 0 % Assessment & Plan Assessment & Plan (1) Osteoarthritis of knees, bilateral: Comment: Improved knee pain. Bilateral knee Euflexxa #2 today Rheumatology history: She has failed physical therapy, cortisone injections, Tylenol and diclofenac gel. Ibuprofen and naproxen caused increased somnolence. Euflexxa 06/2024-08/05/2024. Code(s): M17.0 - Bilateral primary osteoarthritis of knee Category: Medical Plan: Patient received bilateral Euflexxa knee injections RTC 1 week Orders: Orders AMB Joint Injection/Aspiration Today M17.0 - Bilateral primary osteoarthritis of knee AMB Joint Injection/Aspiration Today M17.0 - Bilateral primary osteoarthritis of knee AMB Joint Injection/Aspiration Today M17.0 - Bilateral primary osteoarthritis of knee AMB Joint Injection/Aspiration Today M17.0 - Bilateral primary osteoarthritis of knee Coding Level of Care Code Est Pt Level 3 (54466) Complex EM visit Add On G2211 Diagnoses Osteoarthritis of knees, bilateral M17.0 CPT Codes Coding - 40219 - Bilateral Large Joint: 87621 - Bilateral Large Joint ([id number]) Coding - 54091 - Bilateral Large Joint: 25105 - Bilateral Large Joint ([id number]) Coding - 96332 - Bilateral Large Joint: 56361 - Bilateral Large Joint ([id number]) Coding - 54500 - Bilateral Large Joint: 11118 - Bilateral Large Joint ([id number])
[2025-03-02 09:06] VITALS: BP 130/80; PULSE 64; O2SAT 99
--- OUTSIDE RECORDS SUMMARY | 2025-03-02 09:58 | XMS_ITS | Clinical Summary ---
Author Organization [facility] Address [address] [place] [address] Care Team Providers Care Tennis Instructor Name Role Phone Ayana Deleon APRN Primary Care Provider [phone] Allergies Active Allergy Reactions Criticality Noted Date [...] Advance Directives For more information, please contact: [phone] Latest Code Status on File Code Status Date Activated Date Inactivated Comments Full Code 11/16/2014 10:41 PM 12/02/2014 5:55 PM This code status was ascertained in the following way: discussion with patient. Care Teams Tennis Instructor Relationship Specialty Start Date End Date Ayana Deleon APRN PCP - General Family Medicine 11/27/13
--- OUTSIDE RECORDS SUMMARY | 2025-03-02 09:58 | XMS_ITS | Clinical Summary ---
Author Organization [facility] ity Address [address] [place] [address] Care Team Providers Care Mobile Equipment Servicer Name Role Phone Ayana Deleon I CONFERENCE PRODUCER Primary Care Provider [phone] Immunizations Immunization Administration Dates Next Due Pfizer [...] age to complete this topic Care Teams Mobile Equipment Servicer Relationship Specialty Start Date End Date Ayana Deleon NP PCP - General Family Medicine 11/27/13
== END 2025-03-02 09:57 | disposition home or self-care (01) ==
LOC: HO.RHES 09:14
PROVIDERS: PCP Physician Assistant Medical; Visit Provider Internal Medicine Rheumatology
DX: M17.0 Bilateral primary osteoarthritis of knee (principal)
CPT/HCPCS: 20610; 99213

== ENCOUNTER → 2025-03-02 09:14 | Outpatient (BNVA) | payer MEDICARE, MEDICAID, SELFPAY | PROVIDERS: PCP Physician Assistant Medical; Visit Provider Internal Medicine Rheumatology | DX: M17.0 Bilateral primary osteoarthritis of knee (principal) | CPT/HCPCS: 20610; 99212; J7323 ==

== ENCOUNTER 2025-03-10 14:14 | Outpatient (AMB) | payer MEDICARE, MEDICAID, SELFPAY ==
--- NOTE | 2025-03-10 14:20 | A.OFFVIS_ITS ---
Vital Signs 03/10/25 14:21 Height 5 ft 1 in Weight 229 lb BMI 43.3 BP 126/70 Blood Pressure Location Rt brachial Position Sitting Pulse 67 Pulse Source Pulse Oximeter Pulse Oximetry (%) 95 Oxygen Delivery Method Room Air Intake Visit Reasons: euflexxa 6 months Intake Note: Patient presents today for euflexxa inject. 4 Accompanied by: Self / Same As Patient Allergies amoxicillin Allergy (Intermediate, Verified 03/10/25 14:21) Rash naproxen Adverse Reaction (Unknown, Verified 03/10/25 14:21) Unknown HPI HPI euflexxa 6 months: Details: This morning she woke and reports she is not feeling well. She denies fevers, d yspnea, pleurisy, rhinorrhea, cough, urinary symptoms, joint pain. She has improvement of knee pain after Euflexxa injections. [facility] Medical History Uterine cancer Hypertension Constipation Abdominal wall hernia Tendonitis Osteoarthritis Trochanteric bursitis Backache Arthralgia Surgical History History of appendectomy Hx of cholecystectomy Family History Father FH: prostate cancer Osteoarthritis Mother Esophageal cancer Osteoarthritis Social History Alcohol intake: never Patient Tobacco Use Status: Never used Tobacco Physical Exam Vital Signs: Last Vital Signs Pulse 67 03/10/25 14:21 BP 126/70 03/10/25 14:21 Pulse Ox 95 03/10/25 14:21 Oxygen Delivery Method Room Air 03/10/25 14:21 BMI result Body Mass Index 43.3 Const Other: General: Comfortable Skin: No lesions seen MSK: Non tender knees. No joint effusion. Knee flexion 90 degrees bilateral. Uses cane to ambulate. Office Procedures AMB Joint Injection/Aspiration Joint Injection/Aspiration Details: Bilateral knees Prep: site was prepped using aseptic technique Injected: Euflexxa 20 mg was injected into each knee using 25 gauge 1-1/2 inch needle Procedure: Informed verbal consent was obtained. The patient tolerated the procedure well. Postprocedure protocol was discussed with patient. Coding 70669 - Bilateral Large Joint Procedure code (CPT) selection complete AMB Joint Injection/Aspiration Coding - Bilateral Large Joint Procedure code (CPT) selection complete Office Meds Euflexxa 10 mg/mL (mw 2.4-3.6 million) intra-articular syringe Performing Provider: Alex Santos MD Performing Location: [facility] Administered by: Tristian Wright RN on 03/10/25 15:04 Dose Route Admin Location Dispensed Lot Number Expiration Date [facility] Carrot [employer]uncher 20 mg intra-articular 2 mL [id number] 03/29/26 [address]-8 [employer] Total Dispensed Waste 2 mL 0 % Euflexxa 10 mg/mL (mw 2.4-3.6 million) intra-articular syringe Performing Provider: Alex Santos MD Performing Location: [facility] Administered by: Tristian Wright RN on 03/10/25 15:04 Dose Route Admin Location Dispensed Lot Number Expiration Date [facility] Car[employer]uncher 20 mg intra-articular 2 mL [id number] 03/29/26 [address]-2 [employer] Total Dispensed Waste 2 mL 0 % Assessment & Plan Assessment & Plan (1) Osteoarthritis of knees, bilateral: Comment: Improved knee pain. Bilateral knee Euflexxa #3 today Rheumatology history: She has failed physical therapy, cortisone injections, Tylenol and diclofenac gel. Ibuprofen and naproxen caused increased somnolence. Euflexxa 06/2024-08/05/2024. Code(s): M17.0 - Bilateral primary osteoarthritis of knee Category: Medical Plan: Patient received bilateral Euflexxa knee injections today She will keep a diary of symptoms. She will call office when knee pain returns Return to clinic in 6 months Orders: Orders AMB Joint Injection/Aspiration 03/10/25 M17.0 - Bilateral primary osteoarthritis of knee AMB Joint Injection/Aspiration 03/10/25 M17.0 - Bilateral primary osteoarthritis of knee Coding Level of Care Code Est Pt Level 3 (72219) Complex EM visit Add On G2211 Diagnoses Osteoarthritis of knees, bilateral M17.0 CPT Codes Coding - 52007 - Bilateral Large Joint: 05308 - Bilateral Large Joint ([id number]) Coding - 05772 - Bilateral Large Joint: 06448 - Bilateral Large Joint ([id number])
[2025-03-10 14:21] VITALS: BP 126/70; PULSE 67; O2SAT 95; BMI 43.3
--- OUTSIDE RECORDS SUMMARY | 2025-03-10 17:33 | XMS_ITS | Clinical Summary ---
Author Organization [facility] Address [address] [place] [address] Care Team Providers Care Resident Physician Name Role Phone Ayana Deleon APRN Primary Care Provider [phone] Allergies Active Allergy Reactions Criticality Noted Date [...] Advance Directives For more information, please contact: [phone] Latest Code Status on File Code Status Date Activated Date Inactivated Comments Full Code 11/16/2014 10:41 PM 12/02/2014 5:55 PM This code status was ascertained in the following way: discussion with patient. Care Teams Resident Physician Relationship Specialty Start Date End Date Ayana Deleon APRN PCP - General Family Medicine 11/27/13
--- OUTSIDE RECORDS SUMMARY | 2025-03-10 17:33 | XMS_ITS | Clinical Summary ---
Author Organization [facility] ity Address [address] [place] [address] Care Team Providers Care Jd Edwards Developer Name Role Phone Ayana Deleon I CANARY RAISER Primary Care Provider [phone] Immunizations Immunization Administration Dates Next Due Pfizer [...] age to complete this topic Care Teams Jd Edwards Developer Relationship Specialty Start Date End Date Ayana Deleon NP PCP - General Family Medicine 11/27/13
== END 2025-03-10 14:47 | disposition home or self-care (01) ==
LOC: HO.RHES 14:14
PROVIDERS: PCP Physician Assistant Medical; Visit Provider Internal Medicine Rheumatology
DX: M17.0 Bilateral primary osteoarthritis of knee (principal)
CPT/HCPCS: 20610

== ENCOUNTER → 2025-03-10 14:14 | Outpatient (BNVA) | payer MEDICARE, MEDICAID, SELFPAY | PROVIDERS: PCP Physician Assistant Medical; Visit Provider Internal Medicine Rheumatology | DX: M17.0 Bilateral primary osteoarthritis of knee (principal) | CPT/HCPCS: 20610; J7323 ==